=== PATIENT | male | born 1965 | race Caucasian/White ===

== ENCOUNTER 2024-04-03 14:58 | Emergency (ER) | payer BC ==
[~2024-04-03] VITALS: Ht 165.1 cm; Wt 81.6 kg
[2024-04-03 15:05] VITALS: BP_SYST 147; PULSE 103; RESP 16; TEMP 98; O2SAT 97
[2024-04-03 15:30] LABS: BASOPHILS % (AUTO) 0.2 % (0.0-2.0); EOSINOPHILS % (AUTO) 0.1 % (0.0-4.0); HEMATOCRIT 49.6 % (36-54); LYMPHOCYTES # (AUTO) 1.1 K/uL (1.0-5.5); LYMPHOCYTES % (AUTO) 8.4 % (20.5-51.5); MEAN CORPUSCULAR HEMOGLOBIN 28 pg (27-31); MEAN CORPUSCULAR HGB CONC 34 % (32-36); MEAN CORPUSCULAR VOLUME 81 fL (79.0-98.0); MONOCYTES # (AUTO) 1.6 K/uL (0.0-1.0); MONOCYTES % (AUTO) 12.7 % (1.7-9.3); NEUTROPHILS # (AUTO) 10.1 K/uL (1.8-7.7); NEUTROPHILS % (AUTO) 78.6 % (40.0-70.0); PLATELET COUNT (AUTO) 298 K/uL (130-430); RED BLOOD CELL COUNT(AUTO) 6.13 MIL/uL (4.2-6.2); RED CELL DISTRIBUTION WIDTH 13.7 % (9.0-15.0); WHITE BLOOD COUNT (AUTO) 12.8 K/uL (4.8-10.8)
[2024-04-03 15:41] LABS: INR 1.2 (0.80-1.20)
[2024-04-03 16:05] LABS: ALBUMIN 4.4 g/dL (3.4-4.8); CALCIUM 9.7 mg/dL (8.4-11.0); CREATININE 1.13 mg/dL (0.55-1.30); POTASSIUM 4.2 mmol/L (3.5-5.1); TOTAL BILIRUBIN 1.6 mg/dL (0.0-1.0); TOTAL PROTEIN, SERUM 8.7 g/dL (6.4-8.3)
[2024-04-03 16:14] LABS: BILIRUBIN,DIRECT 0.4 mg/dL (0.0-0.3)
[2024-04-03] MEDS ORDERED: IBUP-1971 PO (17:12)
[2024-04-03] MEDS ORDERED: HYDR-3927 PO (17:12)
[2024-04-03] MEDS ORDERED: ONDA-8 TL (17:13)
[2024-04-03 17:18] VITALS: BP_SYST 142; PULSE 92; RESP 16; TEMP 97.8; O2SAT 98
== END 2024-04-03 17:15 | disposition home or self-care (01) ==
LOC: SED 14:58
DX: K80.20 Calculus of gallbladder without cholecystitis without obstruction (principal); R10.11 Right upper quadrant pain; Z79.899 Other long term (current) drug therapy
CPT/HCPCS: 36415; 80048; 80076; 82150; 83605; 83690; 85025; 85610; 85730; 99284